=== PATIENT | female | born 1960 | race Caucasian/White ===

== ENCOUNTER 2017-02-27 20:42 | Emergency (ER) | payer OTHER, MEDICAID ==
[2017-02-27] MEDS ORDERED: IOPAMIDOL 370 (76%) 100 ML VIAL IV ONE (20:43)
[2017-02-27 21:37] LABS: ABSOLUTE NEUTROPHIL COUNT 7.1 K/mm3 (1.8-7.7); BASO # 0.1 K/mm3 (0.0-0.2); BASO % 0.5 % (0.2-1.0); EOS # 0.3 (0.0-0.5); EOS % 2.8 % (0.9-2.9); HEMATOCRIT 47.7 % (37.0-47.0); HEMOGLOBIN 15.1 gm/l (12.0-16.0); IMM NEUT% 0.2 % (0-1); LYMPH # 2.8 (1.0-4.8); LYMPH % 26.1 % (15-45); MEAN CELL VOLUME 85.9 fl (81.0-99.0); MEAN CORPUSCULAR HEMOGLOBIN 27.2 pg (27.0-31.0); MEAN CORPUSCULAR HGB CONC 31.7 g/dl (33.0-37.0); MEAN PLATELET VOLUME 10.5 fl (7.4-10.4); MONO # 0.5 (0.0-0.8); MONO % 4.7 % (4-12); NEUT % 65.7 % (43-75); PLATELET COUNT 345 K/mm3 (130-400); RED CELL DISTRIBUTION WIDTH 14.7 % (11.5-14.5)
[2017-02-27 21:47] LABS: ALB/GLOB RATIO 1.3 (>1.0); ALBUMIN 4.3 gm/dL (3.5-5.7); CALCIUM 10.2 mg/dL (8.6-10.3)
[2017-02-27 21:49] LABS: D-DIMER 1.42 mg/L FEU (0.20-0.50); INR 0.91; PARTIAL THROMBOPLASTIN TIME 24.1 SECONDS (24.5-33.0); PROTHROMBIN TIME 9.6 SECONDS (9.3-11.4)
[2017-02-27] MEDS ORDERED: MAALOX/LIDO2%VISC/SIMETHICONE 40 ML BOT ONE (23:37)
[2017-02-27] MEDS ORDERED: FAMOTIDINE 10 MG/ML 2ML VIAL ONE (23:49)
[2017-02-28] MEDS ORDERED: DIPHENHYDRAMINE HCL 50 MG/1 ML VIAL ONE (00:03)
[2017-02-28] MEDS ORDERED: METOCLOPRAMIDE HCL 5 MG/ML 2ML VIAL ONE (00:03)
[2017-02-28] MEDS ORDERED: DICYCLOMINE HCL 10 MG CAPSULE ONE (00:49)
[2017-02-28] MEDS ORDERED: ONDANSETRON 4 MG ODT TAB ONE (01:04)
[2017-02-28] MEDS ORDERED: FAMOTIDINE 20 MG TABLET ONE (01:04)
[2017-02-28] MEDS ORDERED: LACTATED RINGERS 1,000 ML ONE (01:22)
--- NOTE | 2017-02-28 08:49 | CT ---
CHEST CTA HISTORY: Elevated d-dimer, pleuritic chest pain. TECHNIQUE: Following the administration of 80 mL of Isovue-370 intravenous contrast, contiguous axial images were acquired from the thoracic inlet to the diaphragmatic hiatus for CT pulmonary angiography. Three-dimensional imaging was not performed. FINDINGS: PULMONARY ARTERIAL TREE: Technically adequate enhancement: No dominant filling defects. THORACIC AORTA: Normal caliber. No evidence of dissection. LUNGS: No gross airspace abnormality. No pleural effusion. CORRY AND MEDIASTINUM: No abnormally enlarged lymph nodes. Distended esophagus with air and fluid content. AXILLAE: No grossly enlarged lymph nodes. UPPER ABDOMEN: Evidence of cholelithiasis. OSSEOUS STRUCTURES: No grossly destructive lesions. MAMMARY SOFT TISSUES: Rim calcified lesions of the breasts. IMPRESSION: No CTA evidence of proximal order pulmonary embolus. Distended, fluid-filled esophagus, which can relate to a distal obstructive process, recommend fluoroscopic versus endoscopic correlation. Evidence of cholelithiasis. Preliminary report relayed to the Emergency Medicine medical service by Dr. Peterson on 02/27/2017 at 2306 hours.
== END 2017-02-28 02:02 | disposition home or self-care (01) ==
LOC: ED 20:42
DX: R07.9 Chest pain, unspecified (principal); K20.9 Esophagitis, unspecified; R11.2 Nausea with vomiting, unspecified; R51 Headache; I48.91 Unspecified atrial fibrillation; E11.9 Type 2 diabetes mellitus without complications; Z79.84 Long term (current) use of oral hypoglycemic drugs